=== PATIENT | male | born 1990 | race Caucasian/White ===

== ENCOUNTER 2023-01-20 18:01 | Emergency (ER) | payer SELFPAY ==
[~2023-01-20] VITALS: Ht 160 cm; Wt 81.6 kg
[2023-01-20 18:16] VITALS: BP 130/75; PULSE 122; RESP 20; TEMP 97.8; O2SAT 98
== END 2023-01-20 20:15 ==
LOC: MED 18:01
DX: Z02.89 Encounter for other administrative examinations (principal); F41.9 Anxiety disorder, unspecified; V49.9XXA Car occupant (driver) (passenger) injured in unspecified traffic accident, initial encounter; Y93.89 Activity, other specified; Y92.410 Unspecified street and highway as the place of occurrence of the external cause; Y99.8 Other external cause status
CPT/HCPCS: 71045; 99283; Q0092